=== PATIENT | female | born 1945 | race Caucasian/White ===

== ENCOUNTER 2020-05-16 15:00 | Emergency (ER) | payer OTHER, SELFPAY ==
[~2020-05-16] VITALS: Ht 157.5 cm; Wt 63.5 kg
[2020-05-16 15:13] VITALS: BP_SYST 145
[2020-05-16 17:30] VITALS: BP_SYST 145
== END 2020-05-16 17:31 | disposition home or self-care (01) ==
LOC: SED 15:00
DX: U07.1 COVID-19 (principal)
CPT/HCPCS: 71045; 99283